=== PATIENT | female | born 1990 | race Caucasian/White ===

== ENCOUNTER 2017-03-29 19:51 | Emergency (ER) | payer MEDICAID ==
[~2017-03-29] VITALS: Ht 167.6 cm; Wt 38.8 kg
[2017-03-29 21:12] VITALS: BP 109/76; PULSE 111; RESP 20; O2SAT 100
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
[2017-03-29] MEDS ORDERED: BUPR1TAB36 SL (22:52)
[2017-03-29] MEDS ORDERED: _Ondansetron ODT 4 mg Tablet PO PRN (23:10)
[2017-03-29 23:45] VITALS: BP 116/84; PULSE 66; RESP 16; O2SAT 99
== END 2017-03-29 23:23 | disposition home or self-care (01) ==
LOC: SED 19:51
DX: F11.23 Opioid dependence with withdrawal (principal); F41.9 Anxiety disorder, unspecified; F32.9 Major depressive disorder, single episode, unspecified